=== PATIENT | male | born 1950 | race Caucasian/White ===

== ENCOUNTER 2018-03-13 20:57 | Observation (INO) | payer MEDICARE, SELFPAY ==
[2018-03-13] VITALS (7 sets, daily range): BP systolic 87–114; BP diastolic 41–56; PULSE 65–80; RESP 16–18; TEMP 36.9; O2SAT 92–98; BMI 36.6
--- NOTE | 2018-03-13 21:33 | DI.RAD.S_ITS ---
PROCEDURE: XR CHEST 1V INDICATIONS: chest pain TECHNIQUE: One view of the chest was acquired. COMPARISON: None. FINDINGS: Surgical changes and devices: None. Lungs and pleura: No pleural effusions or pneumothorax. Lungs are clear. Mediastinum: Mediastinal contours appear normal. Heart size is normal. Bones and chest wall: No suspicious bony lesions. Overlying soft tissues appear unremarkable. IMPRESSION: No acute cardiopulmonary findings. Dictated by: Mica Marie M.D. on 03/13/2018 at 21:56 Approved by: Mica Marie M.D. on 03/13/2018 at 21:57
--- NOTE | 2018-03-13 21:33 | DI.CT.S_ITS ---
PROCEDURE: CT HEAD/BRAIN WO CON INDICATIONS: syncope x4 today TECHNIQUE: Noncontrast 4.5 mm thick angled axial sections acquired from the foramen magnum to the vertex, with coronal and sagittal reformats. For radiation dose reduction, the following was used: automated exposure control, adjustment of mA and/or kV according to patient size. COMPARISON: None. FINDINGS: Image quality: Excellent. CSF spaces: Basal cisterns are patent. No extra-axial fluid collections. The ventricles are symmetric in size and shape. Brain: No intracranial bleeds or masses. There is marked cerebral volume loss for age, with resultant ventricular and sulcal prominence. There are periventricular and deep white matter chronic small vessel ischemic changes. There is intracranial internal carotid artery atherosclerosis. Skull and face: Calvarium and visualized facial bones appear intact, without suspicious lesions. Sinuses: Visualized sinuses and mastoids are clear. IMPRESSION: 1. No acute intracranial findings. 2. Extensive findings likely associated with chronic microvascular ischemic changes. Dictated by: Mica Marie M.D. on 03/13/2018 at 21:54 Approved by: Mica Marie M.D. on 03/13/2018 at 21:56
[2018-03-13 21:45] LABS: Add Manual Diff / Slide Review NO; Basophils Absolute Auto 100 /uL (0-100); Basophils Percent Auto 0.5 % (0-2); Eosinophils Absolute Auto 200 /uL (0-450); Eosinophils Percent Auto 1.4 % (2-4); Hematocrit 35.1 % (41-53); Hemoglobin 11.2 g/dL (13.5-17.5); Lymphocytes Absolute Auto 4700 /uL (1100-4500); Lymphocytes Percent Auto 34.1 % (25-40); Mean Corpuscular HGB Conc 31.9 % (30-36); Mean Corpuscular Hemoglobin 23.7 PG (26-34); Mean Corpuscular Volume 74.2 fL (80-100); Monocytes Absolute Auto 1200 /uL (0-900); Neutrophils Absolute Auto 7600 /uL (1500-7000); Platelet Count 567 X10^3/uL (150-400); Red Blood Cell Count 4.73 X10^6/uL (4.5-5.9); Red Cell Distribution Width 18.5 % (11.6-14.8); White Blood Cell Count 13.8 X10^3/uL (4.5-11.0)
[2018-03-13 21:49] LABS: Alanine Aminotransferase 16 IU/L (21-72); Albumin 4.7 g/dL (3.5-5.0); Albumin Globulin Ratio 1.6 (1.0-2.8); Alkaline Phosphatase 72 U/L (38-126); Aspartate Aminotransferase 20 IU/L (17-59); BUN Creatinine Ratio 16.7 (6-22); Bilirubin Total 0.4 mg/dL (0.2-1.3); Blood Urea Nitrogen 35 mg/dL (9-20); Calcium 9.3 mg/dL (8.4-10.2); Carbon Dioxide 27 mmol/L (22-32); Chloride 93 mmol/L (98-107); Creatine Kinase 44 U/L (55-170); Estimated Glomerular Filt Rate 31.5 mL/min (>60); Globulin 2.9 g/dL (1.7-4.1); Glucose 120 mg/dL (80-110); HEMOLYSIS < 15 (0-50); Potassium 3.6 mmol/L (3.4-5.1); Sodium 137 mmol/L (137-145); Total Protein 7.6 g/dL (6.3-8.2)
--- NOTE | 2018-03-13 21:51 | ED.SYNCOPE ---
HPI - Syncope General Chief Complaint: Syncope Stated Complaint: LOW BLOOD PRESSURE Time Seen by Provider: 03/13/18 21:30 Source: patient Mode of arrival: ambulatory Limitations: no limitations History of Present Illness HPI narrative: Patient is a 68-year-old male who had 4 syncopal episodes today. The 1st injury he fell them coming. He had his some heart palpitations and felt flushed. The 4th 1 he did not feel coming at all he was sitting on the toilet a the getting his blood pressure taken when he of passed out in front of his significant other. He had some mild shaking he was out for about a minute. The other episodes he was out for a couple seconds to a minute. He has had some ongoing dizziness since January. No weakness numbness tingling or blurry vision. He has not had any fever chills or shortness of breath. Been having dizziness off and on for some time. It is only when he sits up or stands up. Today it was much worse than normal. He denies any nausea or vomiting. He feels like the dizziness might have been worse today causing him to pass out multiple times. He does drink about a pot of coffee daily. No alcohol or drug use. MD complaint: collapsed Related Data Home Medications Medication Instructions Recorded Confirmed amiloride-hydrochlorothiazide 1 tab PO DAILY 03/14/18 03/14/18 atorvastatin 10 mg PO DAILY 03/14/18 03/14/18 duloxetine 60 mg PO DAILY 03/14/18 03/14/18 glimepiride 4 mg PO QAM 03/14/18 03/14/18 lisinopril 10 mg PO DAILY 03/14/18 03/14/18 metformin 2,000 mg PO QPM 03/14/18 03/14/18 Allergies Allergy/AdvReac Type Severity Reaction Status Date / Time No Known Drug Allergies Allergy Verified 03/13/18 21:40 Review of Systems Review of Systems ROS Unobtainable: All systems reviewed & are unremarkable except as noted in HPI and below Constitutional Denies chills, Denies fever(s), Denies headache(s), Denies lethargy and Denies weakness ENT Ears, Nose, Mouth, and Throat: Reports vertigo, Reports dizziness and Denies headache(s) Cardiovascular Reports syncope, Denies dyspnea and Denies dyspnea on exertion Respiratory Denies cough, Denies dyspnea, Denies dyspnea on exertion and Denies wheezing Gastrointestinal Gastrointestinal: Denies abdominal pain, Denies change in bowel habits, Denies diarrhea, Denies nausea and Denies vomiting Musculoskeletal Denies back pain, Denies muscle weakness, Denies numbness and Denies tingling Integumentary/Breasts Denies pruritus, Denies erythema, Denies rash and Denies wounds Neurologic Reports vertigo, Reports dizziness, Reports syncope, Denies headache(s), Denies lack of coordination, Denies focal weakness, Denies numbness, Denies seizure-like activity, Denies tingling and Denies weakness Allergic/Immunologic Denies wheezing [facility] Medical History Diabetes (Acute) Hypertension (Acute) Renal cancer (Acute) Family History: Reviewed 03/14/18 by ROGELIO Barlow Social History household members: significant other Smoking Status: Former smoker alcohol intake: former Comment: moving from [place] Exam Initial Vital Signs Initial Vital Signs: Vital Signs Pulse Rate 66 03/13/18 21:00 Respiratory Rate 18 03/13/18 21:00 Blood Pressure 102/52 L 03/13/18 21:00 Pulse Oximetry 92 03/13/18 21:00 GENERAL: Alert overweight male no acute distress HEENT: Head atraumatic,EOMI, pupils reactive, face symmetric CARDIOVASCULAR: Regular rate and rhythm without murmurs, rubs or gallops. RESPIRATORY: Breath sounds equal bilaterally, no wheezes rales or rhonchi. ABDOMEN: Soft, nontender. Normoactive bowel sounds all 4 quadrants. No guarding or rebound. EXTREMITIES: Normal range of motion, no clubbing or edema. Neurovascularly intact NEUROLOGICAL: Alert and oriented x4.Normal gait and speech. Cranial nerves II through XII grossly intact. Good [id number], good [id number], strength equal bilaterally, no dysarthria or aphasia, sensation in tact to soft touch bilaterally, no visual changes, no facial droop SKIN: Warm, dry, no laceration, no petechiae, no rashes or lesions. Course Orders Ordered: ED Orders 03/13/18 21:33 CT head/brain wo con Stat XR chest 1V Stat EKG-12 Lead Stat 03/13/18 22:14 Lactate (Lactic Acid) Stat 03/14/18 CBC [Complete Blood Count AUTO DIFF] Stat Hemoglobin A1C % Stat Magnesium Stat Renal Function Panel Stat Troponin I Stat EKG-12 Lead Routine 03/14/18 02:32 Lactate 4HR (Lactic Acid Rflx) Stat 03/14/18 04:20 Education, smoking cessation ONGOING 03/14/18 05:30 UA Complete [Urinalysis and Microscopic] Stat 03/14/18 05:39 Blood Culture Stat 03/14/18 05:58 EC echo doppler complete Routine Acetaminophen (Tylenol) 650 mg PO Q6HR PRN PRN Reason: As Needed for Fever/Mild Pain Aspirin (Aspirin Ec) 81 mg PO DAILY [facility] Atorvastatin Calcium (Lipitor) 10 mg PO MoWeFr@0900 [facility] Duloxetine HCl (Cymbalta) 60 mg PO DAILY [facility] Enoxaparin Sodium (Lovenox) 30 mg SUBCUT DAILY [facility] Sodium Chloride (Normal Saline 0.9%) 1,000 mls @ 84 mls/hr IV CONT BLUE Last Admin: 03/14/18 05:54 Dose: 84 mls/hr Insulin Aspart (Novolog Flexpen) 0 unit SUBCUT ACHS LBUE; Protocol Ondansetron HCl (Zofran) 4 mg IV Q8HR PRN PRN Reason: Nausea And Vomiting Discontinued Medications Atorvastatin Calcium (Lipitor) 10 mg PO DAILY [facility] Sodium Chloride (Normal Saline 0.9%) 1,000 mls @ 1,000 mls/hr IV BOLUS ONE Stop: 03/13/18 22:31 Last Infusion: 03/13/18 22:56 Dose: 0 mls/hr Admin: 03/13/18 21:58 Dose: 1,000 mls/hr Sodium Chloride (Normal Saline 0.9%) 1,000 mls @ 1,000 mls/hr IV BOLUS ONE Stop: 03/13/18 23:21 Last Infusion: 03/14/18 00:16 Dose: 0 mls/hr Admin: 03/13/18 22:56 Dose: 1,000 mls/hr Vital Signs - 8 hr 03/13/18 22:30 03/13/18 23:07 03/13/18 23:54 Temperature Pulse Rate 72 66 65 Respiratory Rate 18 18 18 Blood Pressure Blood Pressure [Left Arm] 87/56 L 91/41 L 94/41 L Pulse Oximetry 94 96 96 03/14/18 00:19 03/14/18 00:40 03/14/18 04:20 Temperature 97.8 F 97.4 F L Pulse Rate 65 65 67 Respiratory Rate 18 16 16 Blood Pressure 99/47 L 123/62 128/60 Blood Pressure [Left Arm] Pulse Oximetry 98 98 98 03/14/18 04:53 Temperature Pulse Rate Respiratory Rate Blood Pressure Blood Pressure [Left Arm] Pulse Oximetry 99 MDM - Syncope Lab Data Attestation: I reviewed the patient's lab results. Result diagrams: 03/13/18 21:10 03/13/18 21:10 Lab Results 03/13/18 03/13/18 03/13/18 Range/Units 21:10 21:10 22:14 WBC 13.8 H (4.5-11.0) X10^3/uL RBC 4.73 (4.5-5.9) X10^6/uL Hgb 11.2 L (13.5-17.5) g/dL Hct 35.1 L (41-53) % MCV 74.2 L (80-100) fL MCH 23.7 L (26-34) PG MCHC 31.9 (30-36) % RDW 18.5 H (11.6-14.8) % Plt Count 567 H (150-400) X10^3/uL Neut % (Auto) 55.0 (50-75) % Lymph % (Auto) 34.1 (25-40) % [place] % (Auto) 9.0 (3-14) % Eos % (Auto) 1.4 L (2-4) % Baso % (Auto) 0.5 (0-2) % Neut # (Auto) 7600 H (7884-3206) /uL Lymph # (Auto) 4700 H (2974-6966) /uL [place] # (Auto) 1200 H (0-900) /uL Eos # (Auto) 200 (0-450) /uL Baso # (Auto) 100 (0-100) /uL Sodium 137 (137-145) mmol/L Potassium 3.6 (3.4-5.1) mmol/L Chloride 93 L (98-107) mmol/L Carbon Dioxide 27 (22-32) mmol/L BUN 35 H (9-20) mg/dL Creatinine 2.10 H (0.66-1.25) mg/dL Estimated GFR 31.5 L (>60) mL/min BUN/Creatinine Ratio 16.7 (6-22) Glucose 120 H (80-110) mg/dL Lactate 2.2 H (0.7-2.1) mmol/L Calcium 9.3 (8.4-10.2) mg/dL Total Bilirubin 0.4 (0.2-1.3) mg/dL AST 20 (17-59) IU/L ALT 16 L (21-72) IU/L Alkaline Phosphatase 72 (38-126) U/L Total Creatine Kinase 44 L (55-170) U/L CK-MB (CK-2) TNP CK-MB (CK-2) Rel Index TNP Troponin I < 0.012 (0.01-0.034) ng/mL Total Protein 7.6 (6.3-8.2) g/dL Albumin 4.7 (3.5-5.0) g/dL Globulin 2.9 (1.7-4.1) g/dL Albumin/Globulin Ratio 1.6 (1.0-2.8) Urine Color Urine Appearance Urine pH (4.5-8.0) Ur Specific [place] (1.000-1.035) Urine Protein (Negative) Urine Glucose (UA) (Negative) g/dL Urine Ketones (NEGATIVE) Urine Occult Blood (Negative) Urine Nitrate (Negative) Urine Bilirubin (NEGATIVE) Urine Urobilinogen (0.2) E.U./dL Ur Leukocyte Esterase (NEGATIVE) 03/14/18 03/14/18 Range/Units 02:32 05:30 WBC (4.5-11.0) X10^3/uL RBC (4.5-5.9) X10^6/uL Hgb (13.5-17.5) g/dL Hct (41-53) % MCV (80-100) fL MCH (26-34) PG MCHC (30-36) % RDW (11.6-14.8) % Plt Count (150-400) X10^3/uL Neut % (Auto) (50-75) % Lymph % (Auto) (25-40) % [place] % (Auto) (3-14) % Eos % (Auto) (2-4) % Baso % (Auto) (0-2) % Neut # (Auto) (0782-9912) /uL Lymph # (Auto) (4780-5194) /uL [place] # (Auto) (0-900) /uL Eos # (Auto) (0-450) /uL Baso # (Auto) (0-100) /uL Sodium (137-145) mmol/L Potassium (3.4-5.1) mmol/L Chloride (98-107) mmol/L Carbon Dioxide (22-32) mmol/L BUN (9-20) mg/dL Creatinine (0.66-1.25) mg/dL Estimated GFR (>60) mL/min BUN/Creatinine Ratio (6-22) Glucose (80-110) mg/dL Lactate 1.4 (0.7-2.1) mmol/L Calcium (8.4-10.2) mg/dL Total Bilirubin (0.2-1.3) mg/dL AST (17-59) IU/L ALT (21-72) IU/L Alkaline Phosphatase (38-126) U/L Total Creatine Kinase (55-170) U/L CK-MB (CK-2) CK-MB (CK-2) Rel Index Troponin I (0.01-0.034) ng/mL Total Protein (6.3-8.2) g/dL Albumin (3.5-5.0) g/dL Globulin (1.7-4.1) g/dL Albumin/Globulin Ratio (1.0-2.8) Urine Color Yellow Urine Appearance Clear Urine pH 5.0 (4.5-8.0) Ur Specific [place] 1.010 (1.000-1.035) Urine Protein Negative (Negative) Urine Glucose (UA) Trace H (Negative) g/dL Urine Ketones Negative (NEGATIVE) Urine Occult Blood Negative (Negative) Urine Nitrate Negative (Negative) Urine Bilirubin Negative (NEGATIVE) Urine Urobilinogen 0.2 (0.2) E.U./dL Ur Leukocyte Esterase Negative (NEGATIVE) Point of Care Testing Glucose POC 180 Imaging Data Chest x-ray: Radiologist's impression: PROCEDURE: CT ANGIO CHEST ABDOMEN PELVIS INDICATIONS: abdominal pain syncope hypotenstion TECHNIQUE: Precontrast 5 mm thick sections acquired from the lung apices to the iliac crests. After the administration of intravenous contrast, 2.5 mm thick sections again acquired from the lung apices to the iliac crests. Maximum intensity projection (MIP) oblique sagittal and coronal reformats were then acquired. For radiation dose reduction, the following was used: automated exposure control. COMPARISON: [facility], CR, XR CHEST 1V, 03/13/2018, 20:38. None. FINDINGS: Image quality: Excellent. AORTA: Scattered atheromatous calcifications are present within the aortic arch. No aneurysmal dilatation. The thoracic aorta is moderately tortuous. No intimal dissection. No intramural hematomas or thrombus. No thickening or periaortic fat stranding. CHEST: Lungs and pleura: No acute airspace opacities. No pleural effusions or pneumothorax. Central and peripheral airways are patent and normal in caliber. Mediastinum: Heart size is normal. No pericardial effusion. No mediastinal or hilar adenopathy by size criteria. Central pulmonary arteries are normal in size. Esophagus is normal in caliber. There is a large hiatal hernia within the left hemithorax which contains half of the debris-filled stomach. Bones and chest wall: No axillary adenopathy by size criteria. Thyroid gland is unremarkable. No suspicious bony lesions. No vertebral body compression fractures. ABDOMEN: Vasculature: Scattered atheromatous calcifications are present throughout the abdominal aorta. The SMA, ESTEFANI, celiac axis, and renal arteries are patent. Solid organs: Liver is normal in size and enhancement. Gallbladder is unremarkable. Biliary system is non dilated. Pancreas enhances normally. Spleen is normal in size and enhancement. No adrenal nodules. Both kidneys are normal in size and enhancement, without hydronephrosis. Peritoneum and bowel: No free fluid or air. Bowel loops are normal in caliber and wall thickness. The appendix is thin walled and gas filled. Nodes and vessels: No retroperitoneal or mesenteric adenopathy by size criteria. Inferior vena cava is normal in morphology. Miscellaneous: No ventral hernias. PELVIS: Genitourinary: Bladder wall thickness is normal. Miscellaneous: No inguinal adenopathy. There is a moderate-sized fat containing left inguinal hernia.. No ventral hernias. Bones: No suspicious bony lesions. No vertebral body compression fractures. IMPRESSION: 1. No aneurysmal dilatation of the aorta, aortic dissection, or stenosis. 2. Large hiatal hernia within the left hemithorax. 3. No acute intra-abdominal findings. Normal appendix. Dictated by: Mica Marie M.D. on 03/13/2018 at 21:11 CT scan - head: Radiologist's impression: PROCEDURE: CT HEAD/BRAIN WO CON INDICATIONS: syncope x4 today TECHNIQUE: Noncontrast 4.5 mm thick angled axial sections acquired from the foramen magnum to the vertex, with coronal and sagittal reformats. For radiation dose reduction, the following was used: automated exposure control, adjustment of mA and/or kV according to patient size. COMPARISON: None. FINDINGS: Image quality: Excellent. CSF spaces: Basal cisterns are patent. No extra-axial fluid collections. The ventricles are symmetric in size and shape. Brain: No intracranial bleeds or masses. There is marked cerebral volume loss for age, with resultant ventricular and sulcal prominence. There are periventricular and deep white matter chronic small vessel ischemic changes. There is intracranial internal carotid artery atherosclerosis. Skull and face: Calvarium and visualized facial bones appear intact, without suspicious lesions. Sinuses: Visualized sinuses and mastoids are clear. IMPRESSION: 1. No acute intracranial findings. 2. Extensive findings likely associated with chronic microvascular ischemic changes. Dictated by: Mica Marie M.D. on 03/13/2018 at 21:54 Approved by: Mica Marie M.D. on 03/13/2018 at 21:56 ECG Data Interpretation: MDM Narrative Medical decision making narrative: Patient has had 4 syncopal episodes. His blood pressure is has actually dropped while in the ED %period% creatinine is 2.1 unknown what his baseline is. He says that he has some level of renal disease, by he does not know his creatinine. No be placed in observation for IV fluids for hypotension and acute kidney injury. Syncopal episodes today are likely from the hypotension. Also dizziness and vertigo consistent with orthostatic hypotension. Only symptomatic when sitting or standing. He has no loss of fluid. I spoke with hospitalist who accepts patient for observation. Patient up on the floor when I realized EKG was not done in the ED. I did call and update hospitalist who ordered 1 for the floor. Discharge Plan Departure Patient Disposition: Admitted as Observation Clinical Impression: Syncope, Hypotension, OMI (acute kidney injury) Discharge Date/Time: 03/14/18 00:23 Interventions: ED Discharge Assessment Last Done: 03/14/18 00:19 Admit Date/Time: 03/14/18 00:20 Admit Provider: Dori Oneil
[2018-03-13] MEDS: SODIUM CHLORIDE 0.9% 1,000 ML 1000 ML IV ×2 (21:58→22:56)
[2018-03-13 22:01] LABS: Troponin I < 0.012 ng/mL (0.01-0.034)
[2018-03-13 22:29] LABS: Lactate (Lactic Acid) 2.2 mmol/L (0.7-2.1)
[2018-03-14] VITALS (7 sets, daily range): BP systolic 99–141; BP diastolic 47–62; PULSE 65–101; RESP 16–18; TEMP 36.3–36.6; O2SAT 98–100; BMI 38.0
[2018-03-14 02:16] LABS: Reflexed Lactate in 2 Hours Y
--- NOTE | 2018-03-14 02:23 | PC.NURSE ---
Pt. admitted from ER for syncopal episodes at home. Pt. arrived via stretcher. Pt. denies syncope, denies pain, oriented to room, call light, bed controls and because he is admitted for syncope, instructed pt. not to get up without any assistance and bed alarm turned on.
[2018-03-14 02:47] LABS: Lactate 2HR (Lactic Acid Rflx) 1.4 mmol/L (0.7-2.1)
--- NOTE | 2018-03-14 04:34 | P.HP_ITS ---
History of Present Illness Chief complaint: LOW BLOOD PRESSURE Narrative: The patient is a 68-year-old male who presented to the ED on 03/13/2018 at approximately 2108. Patient complaints of low blood pressure and passing out. He does not have a blood pressure device at home and does not know his most recent blood pressures. Symptoms initially noted 3 days ago, at that time he felt dizziness and lightheadedness. Associated symptoms include generalized weakness and diaphoresis. Typically occur with change in position. In the 24 hr prior to hospital admission patient experienced for syncopal events, all occurring after change in position. Some of the events were witnessed by patient's girlfriend. Reports temporary loss of consciousness, 2- 3 seconds. Denies loss of bowel or bladder control. Denies feeling disoriented or lethargic post the event. Patient has not experienced fever, chills, headache, change in vision, chest pain, palpitations, dyspnea, abdominal pain, nausea, vomiting, diarrhea, malaise, myalgias, and symptoms of blood loss. He denies dysuria and hematuria. Reports baseline frequency. However on a separate occasion comments about change in pattern of micturition. No recent illness. No similar events in the past. Denies change in medication. Denies alcohol and recreational drug use. Home medication regimen consists of ASA, amiloride-HCTZ, lisinopril, metformin, glimepiride, atorvastatin, and duloxetine. Reports adherence. ED Work-Up WBC 13.8, RBC 4.73, HGB 11.2, PLT 567? LACTATE 2.2? Trop < 0.012 NA 137, K 3.6, CO 93, CA 9.3, ALB 4.7, GLU 120, CO2 27, CR 2.1, BUN 35, BUN:CR 16.7, AST 20, ALT 16, ALK PHOS 72, CK 44 CXR: No acute cardiopulmonary findings. CT HEAD: No acute intracranial findings. Extensive findings likely associated with chronic microvascular ischemic disease. PMH: renal cancer (dx 2004), CKD, HTN, DM2T, diabetic neuropathy, anxiety, recurrent colon polyps, back pain w/ radiculopathy, memory impairment, obesity ( BMI 38) PSH: partial renal resection (right kidney), excision of tumor (left kidney), colon resection, abdominal hernia repair FHx: Mother (D) heart disease, MD; Father (D) alcohol abuse; Brother (D) heart disease, MD; Brother (D) heart disease, MD; Sister (D) lupus SHx: Lives in [place]. In [facility] visiting his son who was in the [place]. Lives on his own. Functionally independent. Known to have a 21 year history of tobacco dependence, quit 35 years ago. Prior history of alcohol use, denies heavy use, quit 35 years ago. Denies prior or current recreational drug use. Allergies: statin myopathy Patient History Medical History Diabetes (Acute) Hypertension (Acute) Renal cancer (Acute) Family & Social History Family History: Reviewed 03/14/18 by ROGELIO Barlow Social History: household members Independently, at times w/ significant other Prior Living Arrangements House Safety & Behavioral: Feels Safe in Current Yes Environment Been Physically Hurt or No Threatened By a Person Suicidal Ideation Description None Suicide Plan Description No Plan Tobacco & Substance use: Smoking Status Former smoker, 21 year history of tobacco dependence. Smoked 1 pack per day from age [age]. alcohol intake former Substance Use Type does not use Meds Home Medications Medication Instructions Recorded Confirmed Type amiloride-hydrochlorothiazide 1 tab PO DAILY 03/14/18 03/14/18 History atorvastatin 10 mg PO DAILY 03/14/18 03/14/18 History duloxetine 60 mg PO DAILY 03/14/18 03/14/18 History glimepiride 4 mg PO QAM 03/14/18 03/14/18 History lisinopril 10 mg PO DAILY 03/14/18 03/14/18 History metformin 2,000 mg PO QPM 03/14/18 03/14/18 History Allergies Allergy/AdvReac Type Severity Reaction Status Date / Time No Known Drug Allergies Allergy Verified 03/13/18 21:40 Review of Systems Review of Systems All systems reviewed & are unremarkable except as noted in HPI and below Exam Vital Signs (past 8 hours): - 03/13/18 21:00 03/13/18 21:08 03/13/18 21:15 Temperature 98.4 F Pulse Rate 66 80 Respiratory Rate 18 18 Blood Pressure 114/51 L Blood Pressure [Left Arm] 102/52 L 94/47 L Pulse Oximetry 92 98 03/13/18 22:00 03/13/18 22:30 03/13/18 23:07 Temperature Pulse Rate 68 72 66 Respiratory Rate 16 18 18 Blood Pressure Blood Pressure [Left Arm] 92/48 L 87/56 L 91/41 L Pulse Oximetry 92 94 96 03/13/18 23:54 03/14/18 00:19 03/14/18 00:40 Temperature 97.8 F Pulse Rate 65 65 65 Respiratory Rate 18 18 16 Blood Pressure 99/47 L 123/62 Blood Pressure [Left Arm] 94/41 L Pulse Oximetry 96 98 98 Oxygen Delivery Method Room Air Narrative Exam Narrative: Constitutional: NAD Neurologic: Alert, oriented 2-3, poor recall of both recent and remote events, no tremor, no unilateral weakness or facial asymmetry Head: NC, AT Eyes: PERRL, EOMI, no scleral icterus Ears: external ears normal, no otorrhea Nose: external nose normal, no rhinorrhea or epistaxis Throat: dry MM, oropharynx w/o exudate Neck: no masses, lymphadenopathy, or JVD Chest / Respiratory: CTAB, no dyspnea or tachypnea, on room air CV: S1S2, no murmur Abdomen / GI: round, central obesity, NT, ND, + BS, no organomegaly, brusing different stages of healing lower abdomen, non-tender : no suprapubic tenderness, no CVA Peripheral / Vascular: warm to touch, peripheral pulses weak palpable, no edema , arterial insufficiency Musc: full ROM of upper and lower extremities, adequate muscle tone and bulk Skin: Abdominal bruising, warm Objective Labs Result Diagrams: 03/13/18 21:10 03/13/18 21:10 Labs: Laboratory Results - last 24 hr 03/13/18 03/13/18 03/13/18 21:10 21:10 22:14 WBC 13.8 H RBC 4.73 Hgb 11.2 L Hct 35.1 L MCV 74.2 L MCH 23.7 L MCHC 31.9 RDW 18.5 H Plt Count 567 H Neut % (Auto) 55.0 Lymph % (Auto) 34.1 [place] % (Auto) 9.0 Eos % (Auto) 1.4 L Baso % (Auto) 0.5 Neut # (Auto) 7600 H Lymph # (Auto) 4700 H [place] # (Auto) 1200 H Eos # (Auto) 200 Baso # (Auto) 100 Sodium 137 Potassium 3.6 Chloride 93 L Carbon Dioxide 27 BUN 35 H Creatinine 2.10 H Estimated GFR 31.5 L BUN/Creatinine Ratio 16.7 Glucose 120 H Lactate 2.2 H Calcium 9.3 Total Bilirubin 0.4 AST 20 ALT 16 L Alkaline Phosphatase 72 Total Creatine Kinase 44 L CK-MB (CK-2) TNP CK-MB (CK-2) Rel Index TNP Troponin I < 0.012 Total Protein 7.6 Albumin 4.7 Globulin 2.9 Albumin/Globulin Ratio 1.6 03/14/18 02:32 WBC RBC Hgb Hct MCV MCH MCHC RDW Plt Count Neut % (Auto) Lymph % (Auto) [place] % (Auto) Eos % (Auto) Baso % (Auto) Neut # (Auto) Lymph # (Auto) [place] # (Auto) Eos # (Auto) Baso # (Auto) Sodium Potassium Chloride Carbon Dioxide BUN Creatinine Estimated GFR BUN/Creatinine Ratio Glucose Lactate 1.4 Calcium Total Bilirubin AST ALT Alkaline Phosphatase Total Creatine Kinase CK-MB (CK-2) CK-MB (CK-2) Rel Index Troponin I Total Protein Albumin Globulin Albumin/Globulin Ratio Assessment & Plan Plan: Assessment/Plan Narrative: Syncope In the setting of infection VS volume depletion VS hypertension - EKG, tele monitoring - VS Q4H, Orthostatic BPs QShift - Trop, CBC, Renal Fx, Mg, and UA - Echo - IVF - Hold amiloride- HCTZ, to be re-evaluated - VTE prophylaxis Sepsis Presenting state consistent with sepsis criteria. Leukocytosis WBC 13.8, Lactate 2.2, Hypotension, OMI No fever, chills, tachycardia, tachypnea, or hypoxia - CXR no acute findings - Blood Cx and UA pending - Will hold off on empiric therapy at this time, pending UA results and am CBC, may need to consider initiating abx for worsening leukocytosis Hypotension Typically hypertensive, over corrected. - Hold amiloride-hctz and lisinopril Acute kidney injury, sCr 2.1 Likely related to hypovolemia and hypoperfusion H/o renal cancer w/ partial renal resection. Baseline sCr is not known, however patient believes it may be 1.4. OMI on CKD (baseline stage unknown). - hold diuretics and antihypertensive agents - hold metformin - IV fluids - optimize renal perfusion, avoid hypotension, avoid nephrotoxin agents - trend renal function DM 2T, uncontrolled, non-insulin dependent Patient reports poor diabetic control with reported A1c of 9% (6-8 months ago) Current medication regimen consists of metformin 2000 mg QPM and glimepiride 4 mg QAM - will hold oral anti glycemic during inpatient stay - AC/HS Glu POC, Novolog SSI medium dose protocol - A1C level Anxiety - resume [employer] dose / regimen of duloxetine Diabetic neuropathy - resume [employer] dose / regimen of duloxetine Elevated lactate, now resolved w/ IVF Code status discussed with patient. Wishes to be full code. Reports having an advance directive. Designated DPOA is his girlfriend. Home medications reviewed and reconciled accordingly. Addition to current med regimen. ASA 81 mg daily and taking atorvastatin 10 mg 3 times a week. Quality VTE Deep Vein Thrombosis/Pulmonary Embolism Present on Admission: No
--- NOTE | 2018-03-14 04:36 | ED_ITS ---
HPI - Syncope General Chief Complaint: Syncope Stated Complaint: LOW BLOOD PRESSURE Time Seen by Provider: 03/13/18 21:30 Source: patient Mode of arrival: ambulatory Limitations: no limitations History of Present Illness HPI narrative: Patient is a 68-year-old male who had 4 syncopal episodes today. The 1st injury he fell them coming. He had his some heart palpitations and felt flushed. The 4th 1 he did not feel coming at all he was sitting on the toilet a the getting his blood pressure taken when he of passed out in front of his significant other. He had some mild shaking he was out for about a minute. The other episodes he was out for a couple seconds to a minute. He has had some ongoing dizziness since January. No weakness numbness tingling or blurry vision. He has not had any fever chills or shortness of breath. Been having dizziness off and on for some time. It is only when he sits up or stands up. Today it was much worse than normal. He denies any nausea or vomiting. He feels like the dizziness might have been worse today causing him to pass out multiple times. He does drink about a pot of coffee daily. No alcohol or drug use. MD complaint: collapsed Related Data Home Medications Medication Instructions Recorded Confirmed amiloride-hydrochlorothiazide 1 tab PO DAILY 03/14/18 03/14/18 atorvastatin 10 mg PO DAILY 03/14/18 03/14/18 duloxetine 60 mg PO DAILY 03/14/18 03/14/18 glimepiride 4 mg PO QAM 03/14/18 03/14/18 lisinopril 10 mg PO DAILY 03/14/18 03/14/18 metformin 2,000 mg PO QPM 03/14/18 03/14/18 Allergies Allergy/AdvReac Type Severity Reaction Status Date / Time No Known Drug Allergies Allergy Verified 03/13/18 21:40 Review of Systems Review of Systems ROS Unobtainable: All systems reviewed & are unremarkable except as noted in HPI and below Constitutional Denies chills, Denies fever(s), Denies headache(s), Denies lethargy and Denies weakness ENT Ears, Nose, Mouth, and Throat: Reports vertigo, Reports dizziness and Denies headache(s) Cardiovascular Reports syncope, Denies dyspnea and Denies dyspnea on exertion Respiratory Denies cough, Denies dyspnea, Denies dyspnea on exertion and Denies wheezing Gastrointestinal Gastrointestinal: Denies abdominal pain, Denies change in bowel habits, Denies diarrhea, Denies nausea and Denies vomiting Musculoskeletal Denies back pain, Denies muscle weakness, Denies numbness and Denies tingling Integumentary/Breasts Denies pruritus, Denies erythema, Denies rash and Denies wounds Neurologic Reports vertigo, Reports dizziness, Reports syncope, Denies headache(s), Denies lack of coordination, Denies focal weakness, Denies numbness, Denies seizure- like activity, Denies tingling and Denies weakness Allergic/Immunologic Denies wheezing ON LICENSE OF [facility] Medical History Diabetes (Acute) Hypertension (Acute) Renal cancer (Acute) Family History: Reviewed 03/14/18 by ROGELIO Barlow Social History household members: significant other Smoking Status: Former smoker alcohol intake: former Comment: moving from [place] Exam Initial Vital Signs Initial Vital Signs: Vital Signs Pulse Rate 66 03/13/18 21:00 Respiratory Rate 18 03/13/18 21:00 Blood Pressure 102/52 L 03/13/18 21:00 Pulse Oximetry 92 03/13/18 21:00 GENERAL: Alert overweight male no acute distress HEENT: Head atraumatic,EOMI, pupils reactive, face symmetric CARDIOVASCULAR: Regular rate and rhythm without murmurs, rubs or gallops. RESPIRATORY: Breath sounds equal bilaterally, no wheezes rales or rhonchi. ABDOMEN: Soft, nontender. Normoactive bowel sounds all 4 quadrants. No guarding or rebound. EXTREMITIES: Normal range of motion, no clubbing or edema. Neurovascularly intact NEUROLOGICAL: Alert and oriented x4.Normal gait and speech. Cranial nerves II through XII grossly intact. Good [id number], good [id number], strength equal bilaterally, no dysarthria or aphasia, sensation in tact to soft touch bilaterally, no visual changes, no facial droop SKIN: Warm, dry, no laceration, no petechiae, no rashes or lesions. Course Orders Ordered: ED Orders 03/13/18 21:33 CT head/brain wo con Stat XR chest 1V Stat EKG-12 Lead Stat 03/13/18 22:14 Lactate (Lactic Acid) Stat 03/14/18 CBC [Complete Blood Count AUTO DIFF] Stat Hemoglobin A1C % Stat Magnesium Stat Renal Function Panel Stat Troponin I Stat EKG-12 Lead Routine 03/14/18 02:32 Lactate 4HR (Lactic Acid Rflx) Stat 03/14/18 04:20 Education, smoking cessation ONGOING 03/14/18 05:30 UA Complete [Urinalysis and Microscopic] Stat 03/14/18 05:39 Blood Culture Stat 03/14/18 05:58 EC echo doppler complete Routine Acetaminophen (Tylenol) 650 mg PO Q6HR PRN PRN Reason: As Needed for Fever/Mild Pain Aspirin (Aspirin Ec) 81 mg PO DAILY [facility] Atorvastatin Calcium (Lipitor) 10 mg PO MoWeFr@0900 [facility] Duloxetine HCl (Cymbalta) 60 mg PO DAILY [facility] Enoxaparin Sodium (Lovenox) 30 mg SUBCUT DAILY [facility] Sodium Chloride (Normal Saline 0.9%) 1,000 mls @ 84 mls/hr IV CONT BLUE Last Admin: 03/14/18 05:54 Dose: 84 mls/hr Insulin Aspart (Novolog Flexpen) 0 unit SUBCUT ACHS BLUE; Protocol Ondansetron HCl (Zofran) 4 mg IV Q8HR PRN PRN Reason: Nausea And Vomiting Discontinued Medications Atorvastatin Calcium (Lipitor) 10 mg PO DAILY [facility] Sodium Chloride (Normal Saline 0.9%) 1,000 mls @ 1,000 mls/hr IV BOLUS ONE Stop: 03/13/18 22:31 Last Infusion: 03/13/18 22:56 Dose: 0 mls/hr Admin: 03/13/18 21:58 Dose: 1,000 mls/hr Sodium Chloride (Normal Saline 0.9%) 1,000 mls @ 1,000 mls/hr IV BOLUS ONE Stop: 03/13/18 23:21 Last Infusion: 03/14/18 00:16 Dose: 0 mls/hr Admin: 03/13/18 22:56 Dose: 1,000 mls/hr Vital Signs - 8 hr 03/13/18 22:30 03/13/18 23:07 03/13/18 23:54 Temperature Pulse Rate 72 66 65 Respiratory Rate 18 18 18 Blood Pressure Blood Pressure [Left Arm] 87/56 L 91/41 L 94/41 L Pulse Oximetry 94 96 96 03/14/18 00:19 03/14/18 00:40 03/14/18 04:20 Temperature 97.8 F 97.4 F L Pulse Rate 65 65 67 Respiratory Rate 18 16 16 Blood Pressure 99/47 L 123/62 128/60 Blood Pressure [Left Arm] Pulse Oximetry 98 98 98 03/14/18 04:53 Temperature Pulse Rate Respiratory Rate Blood Pressure Blood Pressure [Left Arm] Pulse Oximetry 99 MDM - Syncope Lab Data Attestation: I reviewed the patient's lab results. Result diagrams: 03/13/18 21:10 03/13/18 21:10 Lab Results 03/13/18 03/13/18 03/13/18 Range/Units 21:10 21:10 22:14 WBC 13.8 H (4.5-11.0) X10^3/uL RBC 4.73 (4.5-5.9) X10^6/uL Hgb 11.2 L (13.5-17.5) g/dL Hct 35.1 L (41-53) % MCV 74.2 L (80-100) fL MCH 23.7 L (26-34) PG MCHC 31.9 (30-36) % RDW 18.5 H (11.6-14.8) % Plt Count 567 H (150-400) X10^3/uL Neut % (Auto) 55.0 (50-75) % Lymph % (Auto) 34.1 (25-40) % [place] % (Auto) 9.0 (3-14) % Eos % (Auto) 1.4 L (2-4) % Baso % (Auto) 0.5 (0-2) % Neut # (Auto) 7600 H (8525-9978) /uL Lymph # (Auto) 4700 H (6115-0740) /uL [place] # (Auto) 1200 H (0-900) /uL Eos # (Auto) 200 (0-450) /uL Baso # (Auto) 100 (0-100) /uL Sodium 137 (137-145) mmol/L Potassium 3.6 (3.4-5.1) mmol/L Chloride 93 L (98-107) mmol/L Carbon Dioxide 27 (22-32) mmol/L BUN 35 H (9-20) mg/dL Creatinine 2.10 H (0.66-1.25) mg/dL Estimated GFR 31.5 L (>60) mL/min BUN/Creatinine Ratio 16.7 (6-22) Glucose 120 H (80-110) mg/dL Lactate 2.2 H (0.7-2.1) mmol/L Calcium 9.3 (8.4-10.2) mg/dL Total Bilirubin 0.4 (0.2-1.3) mg/dL AST 20 (17-59) IU/L ALT 16 L (21-72) IU/L Alkaline Phosphatase 72 (38-126) U/L Total Creatine Kinase 44 L (55-170) U/L CK-MB (CK-2) TNP CK-MB (CK-2) Rel Index TNP Troponin I < 0.012 (0.01-0.034) ng/mL Total Protein 7.6 (6.3-8.2) g/dL Albumin 4.7 (3.5-5.0) g/dL Globulin 2.9 (1.7-4.1) g/dL Albumin/Globulin Ratio 1.6 (1.0-2.8) Urine Color Urine Appearance Urine pH (4.5-8.0) Ur Specific [place] (1.000-1.035) Urine Protein (Negative) Urine Glucose (UA) (Negative) g/dL Urine Ketones (NEGATIVE) Urine Occult Blood (Negative) Urine Nitrate (Negative) Urine Bilirubin (NEGATIVE) Urine Urobilinogen (0.2) E.U./dL Ur Leukocyte Esterase (NEGATIVE) 03/14/18 03/14/18 Range/Units 02:32 05:30 WBC (4.5-11.0) X10^3/uL RBC (4.5-5.9) X10^6/uL Hgb (13.5-17.5) g/dL Hct (41-53) % MCV (80-100) fL MCH (26-34) PG MCHC (30-36) % RDW (11.6-14.8) % Plt Count (150-400) X10^3/uL Neut % (Auto) (50-75) % Lymph % (Auto) (25-40) % [place] % (Auto) (3-14) % Eos % (Auto) (2-4) % Baso % (Auto) (0-2) % Neut # (Auto) (2466-5852) /uL Lymph # (Auto) (3950-2879) /uL [place] # (Auto) (0-900) /uL Eos # (Auto) (0-450) /uL Baso # (Auto) (0-100) /uL Sodium (137-145) mmol/L Potassium (3.4-5.1) mmol/L Chloride (98-107) mmol/L Carbon Dioxide (22-32) mmol/L BUN (9-20) mg/dL Creatinine (0.66-1.25) mg/dL Estimated GFR (>60) mL/min BUN/Creatinine Ratio (6-22) Glucose (80-110) mg/dL Lactate 1.4 (0.7-2.1) mmol/L Calcium (8.4-10.2) mg/dL Total Bilirubin (0.2-1.3) mg/dL AST (17-59) IU/L ALT (21-72) IU/L Alkaline Phosphatase (38-126) U/L Total Creatine Kinase (55-170) U/L CK-MB (CK-2) CK-MB (CK-2) Rel Index Troponin I (0.01-0.034) ng/mL Total Protein (6.3-8.2) g/dL Albumin (3.5-5.0) g/dL Globulin (1.7-4.1) g/dL Albumin/Globulin Ratio (1.0-2.8) Urine Color Yellow Urine Appearance Clear Urine pH 5.0 (4.5-8.0) Ur Specific [place] 1.010 (1.000-1.035) Urine Protein Negative (Negative) Urine Glucose (UA) Trace H (Negative) g/dL Urine Ketones Negative (NEGATIVE) Urine Occult Blood Negative (Negative) Urine Nitrate Negative (Negative) Urine Bilirubin Negative (NEGATIVE) Urine Urobilinogen 0.2 (0.2) E.U./dL Ur Leukocyte Esterase Negative (NEGATIVE) Point of Care Testing Glucose POC 180 Imaging Data Chest x-ray: Radiologist's impression: PROCEDURE: CT ANGIO CHEST ABDOMEN PELVIS INDICATIONS: abdominal pain syncope hypotenstion TECHNIQUE: Precontrast 5 mm thick sections acquired from the lung apices to the iliac crests. After the administration of intravenous contrast, 2.5 mm thick sections again acquired from the lung apices to the iliac crests. Maximum intensity projection (MIP) oblique sagittal and coronal reformats were then acquired. For radiation dose reduction, the following was used: automated exposure control. COMPARISON: [facility], CR, XR CHEST 1V, 03/13/2018, 20:38. None. FINDINGS: Image quality: Excellent. AORTA: Scattered atheromatous calcifications are present within the aortic arch. No aneurysmal dilatation. The thoracic aorta is moderately tortuous. No intimal dissection. No intramural hematomas or thrombus. No thickening or periaortic fat stranding. CHEST: Lungs and pleura: No acute airspace opacities. No pleural effusions or pneumothorax. Central and peripheral airways are patent and normal in caliber. Mediastinum: Heart size is normal. No pericardial effusion. No mediastinal or hilar adenopathy by size criteria. Central pulmonary arteries are normal in size. Esophagus is normal in caliber. There is a large hiatal hernia within the left hemithorax which contains half of the debris-filled stomach. Bones and chest wall: No axillary adenopathy by size criteria. Thyroid gland is unremarkable. No suspicious bony lesions. No vertebral body compression fractures. ABDOMEN: Vasculature: Scattered atheromatous calcifications are present throughout the abdominal aorta. The SMA, ESTEFANI, celiac axis, and renal arteries are patent. Solid organs: Liver is normal in size and enhancement. Gallbladder is unremarkable. Biliary system is non dilated. Pancreas enhances normally. Spleen is normal in size and enhancement. No adrenal nodules. Both kidneys are normal in size and enhancement, without hydronephrosis. Peritoneum and bowel: No free fluid or air. Bowel loops are normal in caliber and wall thickness. The appendix is thin walled and gas filled. Nodes and vessels: No retroperitoneal or mesenteric adenopathy by size criteria. Inferior vena cava is normal in morphology. Miscellaneous: No ventral hernias. PELVIS: Genitourinary: Bladder wall thickness is normal. Miscellaneous: No inguinal adenopathy. There is a moderate-sized fat containing left inguinal hernia.. No ventral hernias. Bones: No suspicious bony lesions. No vertebral body compression fractures. IMPRESSION: 1. No aneurysmal dilatation of the aorta, aortic dissection, or stenosis. 2. Large hiatal hernia within the left hemithorax. 3. No acute intra-abdominal findings. Normal appendix. Dictated by: Mica Marie M.D. on 03/13/2018 at 21:11 CT scan - head: Radiologist's impression: PROCEDURE: CT HEAD/BRAIN WO CON INDICATIONS: syncope x4 today TECHNIQUE: Noncontrast 4.5 mm thick angled axial sections acquired from the foramen magnum to the vertex, with coronal and sagittal reformats. For radiation dose reduction, the following was used: automated exposure control, adjustment of mA and/or kV according to patient size. COMPARISON: None. FINDINGS: Image quality: Excellent. CSF spaces: Basal cisterns are patent. No extra-axial fluid collections. The ventricles are symmetric in size and shape. Brain: No intracranial bleeds or masses. There is marked cerebral volume loss for age, with resultant ventricular and sulcal prominence. There are periventricular and deep white matter chronic small vessel ischemic changes. There is intracranial internal carotid artery atherosclerosis. Skull and face: Calvarium and visualized facial bones appear intact, without suspicious lesions. Sinuses: Visualized sinuses and mastoids are clear. IMPRESSION: 1. No acute intracranial findings. 2. Extensive findings likely associated with chronic microvascular ischemic changes. Dictated by: Mica Marie M.D. on 03/13/2018 at 21:54 Approved by: Mica Marie M.D. on 03/13/2018 at 21:56 ECG Data Interpretation: MDM Narrative Medical decision making narrative: Patient has had 4 syncopal episodes. His blood pressure is has actually dropped while in the ED %period% creatinine is 2.1 unknown what his baseline is. He says that he has some level of renal disease, by he does not know his creatinine. No be placed in observation for IV fluids for hypotension and acute kidney injury. Syncopal episodes today are likely from the hypotension. Also dizziness and vertigo consistent with orthostatic hypotension. Only symptomatic when sitting or standing. He has no loss of fluid. I spoke with hospitalist who accepts patient for observation. Patient up on the floor when I realized EKG was not done in the ED. I did call and update hospitalist who ordered 1 for the floor. Discharge Plan Departure Patient Disposition: Admitted as Observation Clinical Impression: Syncope, Hypotension, OMI (acute kidney injury) Discharge Date/Time: 03/14/18 00:23 Interventions: ED Discharge Assessment Last Done: 03/14/18 00:19 Admit Date/Time: 03/14/18 00:20 Admit Provider: Dori Oneil
[2018-03-14] MEDS: SODIUM CHLORIDE 0.9% 1,000 ML 84 ML IV (05:54)
[2018-03-14 06:00] LABS: Bacteria Urine None Seen; RBC Urine None Seen (0-5/HPF); WBC Urine None Seen (0-5/HPF)
[2018-03-14 06:01] LABS: Appearance Urine UA CLEAR; Bilirubin Urine UA NEGATIVE (NEGATIVE); Color Urine UA YELLOW; Glucose Urine UA TRACE g/dL (Negative); Ketones Urine UA NEGATIVE (NEGATIVE); Leukocyte Esterase Urine UA NEGATIVE (NEGATIVE); Nitrite Urine UA NEGATIVE (Negative); Occult Blood Urine UA NEGATIVE (Negative); Protein Urine UA NEGATIVE (Negative); Urobilinogen Urine UA 0.2 E.U./dL (0.2)
[2018-03-14 06:53] LABS: Add Manual Diff / Slide Review NO; Basophils Absolute Auto 100 /uL (0-100); Basophils Percent Auto 0.8 % (0-2); Eosinophils Absolute Auto 200 /uL (0-450); Eosinophils Percent Auto 1.6 % (2-4); Hematocrit 33.4 % (41-53); Hemoglobin 10.5 g/dL (13.5-17.5); Lymphocytes Absolute Auto 2900 /uL (1100-4500); Lymphocytes Percent Auto 29.3 % (25-40); Mean Corpuscular HGB Conc 31.5 % (30-36); Mean Corpuscular Hemoglobin 23.6 PG (26-34); Mean Corpuscular Volume 74.8 fL (80-100); Monocytes Absolute Auto 900 /uL (0-900); Monocytes Percent Auto 8.7 % (3-14); Neutrophils Absolute Auto 5900 /uL (1500-7000); Neutrophils Percent Auto 59.6 % (50-75); Platelet Count 436 X10^3/uL (150-400); Red Blood Cell Count 4.46 X10^6/uL (4.5-5.9); Red Cell Distribution Width 18.8 % (11.6-14.8); White Blood Cell Count 9.8 X10^3/uL (4.5-11.0)
[2018-03-14 06:56] LABS: Albumin 4.2 g/dL (3.5-5.0); Blood Urea Nitrogen 28 mg/dL (9-20); Calcium 8.8 mg/dL (8.4-10.2); Carbon Dioxide 27 mmol/L (22-32); Chloride 98 mmol/L (98-107); Estimated Glomerular Filt Rate 50.2 mL/min (>60); Glucose 198 mg/dL (80-110); HEMOLYSIS < 15 (0-50); Magnesium 2.3 mg/dL (1.6-2.3); Phosphorous 3.9 mg/dL (2.3-3.7); Potassium 3.8 mmol/L (3.4-5.1); Sodium 137 mmol/L (137-145)
[2018-03-14 06:59] LABS: Hemoglobin A1C% w Est Avg Glu 8.6 % (4.0-6.0)
[2018-03-14 07:08] LABS: Troponin I < 0.012 ng/mL (0.01-0.034)
[2018-03-14 07:36] LABS: Culture Indicated Urine Cult Not Indicated; Urine Comments Microscopic Normal
[2018-03-14] MEDS: ASPIRIN EC 81 MG TABLET PO (09:08)
[2018-03-14] MEDS: ENOXAPARIN 30 MG/0.3 ML SYRINGE SUBCUT (09:08)
[2018-03-14] MEDS: DULOXETINE 30 MG CAPSULE 60 MG PO (09:08)
[2018-03-14] MEDS: INSULIN ASPART 100 UNIT/ML INSULN PEN SUBCUT ×2 (09:13→12:30)
--- NOTE | 2018-03-14 10:44 | PM.DS.1 ---
History of Present Illness Date Patient Seen: 03/14/18 Chief complaint: LOW BLOOD PRESSURE Narrative: The patient is a 68-year-old male who presented to the ED on 03/13/2018 at approximately 2108. Patient complaints of low blood pressure and passing out. He does not have a blood pressure device at home and does not know his most recent blood pressures. Symptoms initially noted 3 days ago, at that time he felt dizziness and lightheadedness. Associated symptoms include generalized weakness and diaphoresis. Typically occur with change in position. In the 24 hr prior to hospital admission patient experienced for syncopal events, all occurring after change in position. Some of the events were witnessed by patient's girlfriend. Reports temporary loss of consciousness, 2-3 seconds. Denies loss of bowel or bladder control. Denies feeling disoriented or lethargic post the event. Patient has not experienced fever, chills, headache, change in vision, chest pain, palpitations, dyspnea, abdominal pain, nausea, vomiting, diarrhea, malaise, myalgias, and symptoms of blood loss. He denies dysuria and hematuria. Reports baseline frequency. However on a separate occasion comments about change in pattern of micturition. No recent illness. No similar events in the past. Denies change in medication. Denies alcohol and recreational drug use. Home medication regimen consists of ASA, amiloride-HCTZ, lisinopril, metformin, glimepiride, atorvastatin, and duloxetine. Reports adherence. Discharge Providers Date of admission: 03/14/18 00:20 Discharge provider: Akin Francisco MD Discharge Date: 03/14/18 Summary Discharge Diagnosis: 1. Acute dehydration 2. Acute kidney injury secondary to dehydration 3. Acute leukocytosis, noninfectious, resolved 4. Type 2 diabetes, uncontrolled 5. Hypertension 6. Acute hypotension, resolved secondary to dehydrate 7. Microcytic anemia, likely chronic Hospital Course: Patient was treated with IV fluids with complete symptomatic improvement of his orthostatic dizziness. Lactic acid improved from 2.2 down to 1.4. Creatinine improved from 2.1 down to 1.4 which is his baseline. WBC improved from 13.8 down to 9.8 without any antibiotic. Chest x-ray and urinalysis without infection. Patient had been consuming a pot of coffee daily and had decreased his water intake recently thereby likely contributing to dehydration. He will substantially cut back on his coffee and increase daily non caffeine fluid intake. After discussion with patient, I have discontinued his diuretic at least on a temporary basis until he follows up with his PCP. Patient will monitor his blood pressure once or twice daily. He is advised he can resume his diuretic if blood pressures are trending up above 140. He will continue his lisinopril and other medications. His A1c was 8.6 indicating poor long-term diabetes control. He will follow up with PCP for further long-term diabetes management. Also note he was hospitalized in the past year with a bleeding ulcer and has a microcytic anemia. He is taking PPI. No sign of acute bleeding. Status at Discharge Functional status at discharge: independent ambulation Overall status at discharge: patient is back to baseline Time Spent with Patient Greater than 30 minutes Exam Vital Signs (past 8 hours): - 03/14/18 04:20 03/14/18 04:53 03/14/18 07:45 Temperature 97.4 F L 97.4 F L Pulse Rate 67 67 Pulse Rate [Orthostatic Lying] 67 Pulse Rate [Orthostatic Sitting] 71 Pulse Rate [Orthostatic Standing] 101 H Respiratory Rate 16 18 Blood Pressure 128/60 111/61 Blood Pressure [Orthostatic Lying] 111/61 Blood Pressure [Orthostatic Sitting] 141/62 H Blood Pressure [Orthostatic Standing] 104/54 L Pulse Oximetry 98 99 100 03/14/18 09:05 03/14/18 09:49 Temperature Pulse Rate Pulse Rate [Orthostatic Lying] Pulse Rate [Orthostatic Sitting] Pulse Rate [Orthostatic Standing] Respiratory Rate Blood Pressure Blood Pressure [Orthostatic Lying] Blood Pressure [Orthostatic Sitting] Blood Pressure [Orthostatic Standing] Pulse Oximetry 100 98 Oxygen Delivery Method Room Air Oxygen Flow Rate 0 Objective Labs Result Diagrams: 03/14/18 06:36 03/14/18 06:36 Labs: Laboratory Results - last 24 hr 03/13/18 03/13/18 03/13/18 21:10 21:10 22:14 WBC 13.8 H RBC 4.73 Hgb 11.2 L Hct 35.1 L MCV 74.2 L MCH 23.7 L MCHC 31.9 RDW 18.5 H Plt Count 567 H Neut % (Auto) 55.0 Lymph % (Auto) 34.1 [place] % (Auto) 9.0 Eos % (Auto) 1.4 L Baso % (Auto) 0.5 Neut # (Auto) 7600 H Lymph # (Auto) 4700 H [place] # (Auto) 1200 H Eos # (Auto) 200 Baso # (Auto) 100 Sodium 137 Potassium 3.6 Chloride 93 L Carbon Dioxide 27 BUN 35 H Creatinine 2.10 H Estimated GFR 31.5 L BUN/Creatinine Ratio 16.7 Glucose 120 H Hemoglobin A1c Lactate 2.2 H Calcium 9.3 Phosphorus Magnesium Total Bilirubin 0.4 AST 20 ALT 16 L Alkaline Phosphatase 72 Total Creatine Kinase 44 L CK-MB (CK-2) TNP CK-MB (CK-2) Rel Index TNP Troponin I < 0.012 Total Protein 7.6 Albumin 4.7 Globulin 2.9 Albumin/Globulin Ratio 1.6 Urine Color Urine Appearance Urine pH Ur Specific [place] Urine Protein Urine Glucose (UA) Urine Ketones Urine Occult Blood Urine Nitrate Urine Bilirubin Urine Urobilinogen Ur Leukocyte Esterase Urine RBC Urine WBC Urine Bacteria Ur Culture Indicated? Micro UA Comment 03/14/18 03/14/18 03/14/18 02:32 05:30 06:36 WBC 9.8 RBC 4.46 L Hgb 10.5 L Hct 33.4 L MCV 74.8 L MCH 23.6 L MCHC 31.5 RDW 18.8 H Plt Count 436 H Neut % (Auto) 59.6 Lymph % (Auto) 29.3 [place] % (Auto) 8.7 Eos % (Auto) 1.6 L Baso % (Auto) 0.8 Neut # (Auto) 5900 Lymph # (Auto) 2900 [place] # (Auto) 900 Eos # (Auto) 200 Baso # (Auto) 100 Sodium Potassium Chloride Carbon Dioxide BUN Creatinine Estimated GFR BUN/Creatinine Ratio Glucose Hemoglobin A1c Lactate 1.4 Calcium Phosphorus Magnesium Total Bilirubin AST ALT Alkaline Phosphatase Total Creatine Kinase CK-MB (CK-2) CK-MB (CK-2) Rel Index Troponin I Total Protein Albumin Globulin Albumin/Globulin Ratio Urine Color Yellow Urine Appearance Clear Urine pH 5.0 Ur Specific [place] 1.010 Urine Protein Negative Urine Glucose (UA) Trace H Urine Ketones Negative Urine Occult Blood Negative Urine Nitrate Negative Urine Bilirubin Negative Urine Urobilinogen 0.2 Ur Leukocyte Esterase Negative Urine RBC None seen Urine WBC None seen Urine Bacteria None seen Ur Culture Indicated? Cult not indicated Micro UA Comment Microscopic normal 03/14/18 03/14/18 06:36 06:36 WBC RBC Hgb Hct MCV MCH MCHC RDW Plt Count Neut % (Auto) Lymph % (Auto) [place] % (Auto) Eos % (Auto) Baso % (Auto) Neut # (Auto) Lymph # (Auto) [place] # (Auto) Eos # (Auto) Baso # (Auto) Sodium 137 Potassium 3.8 Chloride 98 Carbon Dioxide 27 BUN 28 H Creatinine 1.40 H Estimated GFR 50.2 L BUN/Creatinine Ratio 20.0 Glucose 198 H Hemoglobin A1c 8.6 H Lactate Calcium 8.8 Phosphorus 3.9 H Magnesium 2.3 Total Bilirubin AST ALT Alkaline Phosphatase Total Creatine Kinase CK-MB (CK-2) CK-MB (CK-2) Rel Index Troponin I < 0.012 Total Protein Albumin 4.2 Globulin Albumin/Globulin Ratio Urine Color Urine Appearance Urine pH Ur Specific [place] Urine Protein Urine Glucose (UA) Urine Ketones Urine Occult Blood Urine Nitrate Urine Bilirubin Urine Urobilinogen Ur Leukocyte Esterase Urine RBC Urine WBC Urine Bacteria Ur Culture Indicated? Micro UA Comment Discharge Plan Discharge Plan Patient Disposition: Home Discharge Med Rec/Prescriptions Prescriptions: Continue atorvastatin 10 mg Tablet 10 mg PO DAILY RF: 0 lisinopril 10 mg Tablet 10 mg PO DAILY RF: 0 glimepiride 4 mg Tablet 4 mg PO QAM RF: 0 duloxetine 60 mg Capsule,Delayed Release(Dr/Ec) 60 mg PO DAILY RF: 0 metformin 1,000 mg Tablet,Er Landry.Retention 24 Hr 2,000 mg PO QPM RF: 0 Discontinued amiloride-hydrochlorothiazide 5-50 mg Tablet 1 tab PO DAILY RF: 0 Provider Discharge Instructions Diet: Diet as Tolerated Visit Report/Discharge Packet Instructions: DI for Syncope in Adults (Fainting), DI for Orthostatic Hypotension, DI for Dehydration -- Adult Visit Report Forms: Stroke Signs & Symptoms Discharge Data Attending Provider: Dori Oneil Admit Date/Time: 03/14/18 00:20 Quality VTE Deep Vein Thrombosis/Pulmonary Embolism Present on Admission: No
--- NOTE | 2018-03-14 12:56 | PC.NURSE ---
Discharge: Tele dc'd, IV dc'd intact. Reviewed all d/c instructions with patient. Given education info on syncope, dehydration and orthostasis. Patient is aware that he needs to stay well-hydrated and has been drinking well today. Patient understands he should STOP his HCTZ, but continue with all other usual home meds. He plans to check his BP at home. Verbalized understanding of all d/c info and stated no further questions. All belongings sent with patient including clothing, glasses and cellphone. Wheeled out to private vehicle by this contract writer.
--- NOTE | 2018-03-14 14:58 | CM.IDA ---
Met w/pt briefly this morning, explained SW role. Pt eager to see the Dr and leave. Pt visiting from [place], [place] w/ his , visiting adult children here. Pt active and indp at baseline. Pt retired, spouse is 20 years younger. Pt explains he was severely dehydrated. No barriers indicated to safe return home w/family when medically cleared. [facility]
== END 2018-03-14 12:59 | disposition home or self-care (01) ==
LOC: ED 22:58 → ICU 03-14 00:21 → AC 03-14 00:33
PROVIDERS: Nurse Practitioner Gerontology; Admitting Provider Internal Medicine; Emergency Provider Emergency Medicine; Visit Provider Internal Medicine
DX: E86.0 Dehydration (principal); R55 Syncope and collapse; Z87.891 Personal history of nicotine dependence; E11.42 Type 2 diabetes mellitus with diabetic polyneuropathy; E66.9 Obesity, unspecified; Z68.38 Body mass index [BMI] 38.0-38.9, adult; N18.9 Chronic kidney disease, unspecified; F41.9 Anxiety disorder, unspecified; Z79.84 Long term (current) use of oral hypoglycemic drugs; N17.9 Acute kidney failure, unspecified; D72.829 Elevated white blood cell count, unspecified; D50.9 Iron deficiency anemia, unspecified; I12.9 Hypertensive chronic kidney disease with stage 1 through stage 4 chronic kidney disease, or unspecified chronic kidney disease
CPT/HCPCS: 36415; 36591; 70450; 71045; 80053; 80069; 81001; 82550; 82962; 83036; 83605; 83735; 84484; 85025; 87040; 93005; 96360; 96361; 99284; 99285; G0378; J1650